=== PATIENT | male | born 1955 | race Caucasian/White ===

== ENCOUNTER 2022-02-15 09:49 | Emergency (ER) | payer OTHER ==
[~2022-02-15] VITALS: Ht 177.8 cm; Wt 83.9 kg
[2022-02-15 10:47] LABS: BASOPHILS ABSOLUTE AUTO 0.05 K/mm3 (0.00-0.23); BASOPHILS PERCENT AUTO 1 % (0-2); EOSINOPHILS PERCENT AUTO 0 % (0-6); Hematocrit 41.2 % (37.0-53.0); Hemoglobin 14.3 g/dL (13.5-17.5); IMMATURE GRAN ABSOLUTE AUTO 0.03 K/mm3 (0.00-0.10); IMMATURE GRAN PERCENT AUTO 0 % (0-1); LYMPHOCYTES ABSOLUTE AUTO 1.24 K/mm3 (0.84-5.20); LYMPHOCYTES PERCENT AUTO 14 % (21-46); MONOCYTES ABSOLUTE AUTO 0.69 K/mm3 (0.16-1.47); MONOCYTES PERCENT AUTO 8 % (4-13); Mean Corpuscular HGB 31.2 pg (26.0-34.0); Mean Corpuscular HGB Conc 34.7 g/dL (31.5-36.5); Mean Corpuscular Volume 90 fL (80-100); Mean Platelet Volume 8.9 fL (9.1-12.4); NEUTROPHILS ABSOLUTE AUTO 6.78 K/mm3 (1.96-9.15); NEUTROPHILS PERCENT AUTO 77 % (41-73); Platelet Count 183 K/mm3 (150-400); RDW Standard Deviation 42.7 fL (35.1-46.3); Red Blood Cell Count 4.59 M/mm3 (4.30-5.90); White Blood Cell Count 8.79 K/mm3 (4.00-11.30)
[2022-02-15 11:07] LABS: Albumin, Blood 3.8 g/dL (3.4-5.0); Albumin/Globulin Ratio 1.2 (0.8-1.8); Bilirubin, Total 0.7 mg/dL (0.1-1.0); Bun/Creatinine Ratio 18.4 (12.0-20.0); Calcium, Blood 8.3 mg/dL (8.5-10.1); Creatinine, Blood 0.71 mg/dL (0.60-1.20); Globulin, Blood 3.1 g/dL (2.2-4.0); Total Protein, Blood 6.9 g/dL (6.4-8.2)
[2022-02-15] MEDS ORDERED: NEURONTIN300 MG PO (11:31)
[2022-02-15] MEDS ORDERED: AMLODIPINE BESYL5 MG PO (11:31)
[2022-02-15] MEDS ORDERED: LISI5 PO (11:31)
[2022-02-15] MEDS ORDERED: ESCI10 PO (11:32)
[2022-02-15 11:47] LABS: Source, Urine Clean Catch
[2022-02-15 12:32] LABS: Appearance, Urine Clear (Clear); Bilirubin, Urine Neg (Neg); Blood, Urine Neg (Neg); Color, Urine Yellow (P-Yellow); Glucose Qualitative, Urine Neg (Neg); Ketones, Urine 3+ (Neg); Leukocyte Esterase, Urine Neg (Neg); Nitrite, Urine Neg (Neg); Protein, Urine 1+ (Neg); Urobilinogen, Urine 1+ (Normal); pH, Urine 6.5 (5.0-8.0)
== END 2022-02-15 14:06 | disposition home or self-care (01) ==
LOC: ER 09:49
PROVIDERS: Emergency Medicine; Physician Assistant
DX: R10.12 Left upper quadrant pain (principal); F10.90 Alcohol use, unspecified, uncomplicated; I10 Essential (primary) hypertension; Z88.5 Allergy status to narcotic agent; Z95.5 Presence of coronary angioplasty implant and graft
CPT/HCPCS: 71045; 74177; 80053; 83690; 84484; 85025; 86140; 93005; 93010; C9113; G0480; J2405; Q9967

== ENCOUNTER 2022-11-22 14:16 | Inpatient (IN) | payer MEDICARE ==
[2022-11-22] VITALS (10 sets, daily range): BP systolic 142–159; BP diastolic 73–114
[~2022-11-22] VITALS: Ht 177.8 cm; Wt 80.0 kg
[~2022-11-22 14:16] MED LIST: AMLODIPINE BESYL5 MG PO; ESCI10 PO; LISI5 PO; NEURONTIN300 MG PO
[2022-11-22 15:01] LABS: PCO2 Arterial < 8 mmHg (35-45); PO2 Arterial 120 mmHg (80-100); pH Blood Arterial 7.13 (7.35-7.45)
[2022-11-22 15:03] LABS: BASOPHILS ABSOLUTE AUTO 0.06 K/mm3 (0.00-0.23); BASOPHILS PERCENT AUTO 1 % (0-2); EOSINOPHILS ABSOLUTE AUTO 0.01 K/mm3 (0.00-0.68); EOSINOPHILS PERCENT AUTO 0 % (0-6); Hematocrit 41.9 % (37.0-53.0); Hemoglobin 14.3 g/dL (13.5-17.5); IMMATURE GRAN PERCENT AUTO 2 % (0-1); LYMPHOCYTES ABSOLUTE AUTO 0.84 K/mm3 (0.84-5.20); LYMPHOCYTES PERCENT AUTO 9 % (21-46); MONOCYTES ABSOLUTE AUTO 1.18 K/mm3 (0.16-1.47); MONOCYTES PERCENT AUTO 12 % (4-13); Mean Corpuscular HGB 35.8 pg (26.0-34.0); Mean Corpuscular HGB Conc 34.1 g/dL (31.5-36.5); Mean Corpuscular Volume 105 fL (80-100); NEUTROPHILS ABSOLUTE AUTO 7.55 K/mm3 (1.96-9.15); NEUTROPHILS PERCENT AUTO 77 % (41-73); NRBC ABSOLUTE 0.09 K/mm3 (0.00-0.02); NRBC Auto 0.9 /100 WBC (0.0-0.2); Platelet Count 169 K/mm3 (150-400); RDW Coefficient Variation 13.2 % (11.7-14.2); RDW Standard Deviation 51.1 fL (35.1-46.3); White Blood Cell Count 9.84 K/mm3 (4.00-11.30)
[2022-11-22 16:00] LABS: Albumin, Blood 3.8 g/dL (3.4-5.0); Albumin/Globulin Ratio 1.1 (0.8-1.8); Bilirubin, Total 4.3 mg/dL (0.1-1.0); Bun/Creatinine Ratio 10.5 (12.0-20.0); Calcium, Blood 9.1 mg/dL (8.5-10.1); Creatinine, Blood 1.72 mg/dL (0.60-1.20); Globulin, Blood 3.6 g/dL (2.2-4.0); Potassium, Blood 3.7 mmol/L (3.5-5.5); Total Protein, Blood 7.4 g/dL (6.4-8.2)
[2022-11-22 16:59] LABS: Ethanol (Alcohol), Blood, Med 5 mg/dL
[2022-11-22 17:20] LABS: Acetaminophen, Random <2.0 ug/mL (10.0-30.0); Salicylate <1.7 mg/dL (2.8-20.0)
[2022-11-22 17:47] LABS: Source, Urine Clean Catch
[2022-11-22 17:55] LABS: Blood, Urine 5+ (Neg); Glucose Qualitative, Urine Neg (Neg); Ketones, Urine 4+ (Neg); Leukocyte Esterase, Urine Neg (Neg); Nitrite, Urine Neg (Neg); Protein, Urine 3+ (Neg); Urobilinogen, Urine 2+ (Normal)
[2022-11-22 18:14] LABS: U Amphetamine Screen Not Detected; U Barbituate Screen Not Detected; U Benzodiazapine Screen Not Detected; U Buprenorphine Screen Not Detected; U Cannabinoids Screen Not Detected; U Cocaine Screen Not Detected; U Methadone Screen Not Detected; U Methamphetamine Screen Not Detected; U Opiates Screen Not Detected; U Oxycodone Screen Not Detected; U Phencyclidine Screen Not Detected; U Propoxyphene Screen Not Detected
[2022-11-22 18:15] LABS: Bilirubin, Urine 1+ (Neg)
[2022-11-22 18:16] LABS: Appearance, Urine Hazy (Clear); Color, Urine Amber (P-Yellow)
[2022-11-22 18:17] LABS: Amorphous Light (0-Heavy); Bacteria Few /hpf; Red Blood Cells, Urine 0-2 /hpf (0-2); Squamous Epithelial Cells Rare /hpf (Few); White Blood Cells, Urine 0-2 /hpf (0-5)
--- NOTE | 2022-11-22 18:31 | NUR ---
Summary. Pt arrived to ICU at approximately 1800. Pt alert responding to verbal stimuli. Report received from MEMBERSHIP ADMINISTRATOR. Bicarb infusing at 100 ml/hr. Pt nauseous, vomited one time into emesis bag. PRN zofran given. Pt on room air, tachypnic and hypertensive. Pt states hx of recent acohol cessasion, states he drank heavily for years before quitting. Pt does not remember losing conciousness and coming to hospital. Dr. Hinton at bedside at 1830 to assess pt. Pt assessed for smoking/ignition sources. No risk identified. Rounded hourly.
[2022-11-22 18:37] LABS: International Normalized Ratio 1.07; Prothrombin Time Results 11.2 Sec (9.7-11.5)
[2022-11-22 18:50] LABS: Base Excess Venous -18.5 mmol/L; Bicarbonate Venous 11.9 mmol/L (24.0-30.0); PCO2 Venous 21.9 mmHg (38-42); pH Blood Venous 7.23 (7.34-7.37)
[2022-11-22 18:56] LABS: Albumin, Blood 3.5 g/dL (3.4-5.0); Albumin/Globulin Ratio 1.2 (0.8-1.8); Bilirubin, Total 5.7 mg/dL (0.1-1.0); Bun/Creatinine Ratio 11.1 (12.0-20.0); Calcium, Blood 8.6 mg/dL (8.5-10.1); Creatinine, Blood 1.62 mg/dL (0.60-1.20); Globulin, Blood 2.9 g/dL (2.2-4.0); Potassium, Blood 2.9 mmol/L (3.5-5.5); Total Protein, Blood 6.4 g/dL (6.4-8.2)
[2022-11-22 21:57] LABS: PCO2 Venous 31 mmHg (38-42); pH Blood Venous 7.36 (7.34-7.37)
[2022-11-22 21:58] LABS: Base Excess Venous -7.9 mmol/L; Bicarbonate Venous 18.6 mmol/L (24.0-30.0)
[2022-11-22 22:51] LABS: Alanine Aminotransfer (ALT/SGP 319 U/L (12-78); Albumin/Globulin Ratio 1.1 (0.8-1.8); Alk Phos 104 U/L (50-136); Anion Gap 24 mmol/L (6-16); Aspartate Aminotrans (AST/SGOT 860 U/L (12-37); Bilirubin, Direct 5.3 mg/dL (0.0-0.3); Bilirubin, Total 6.5 mg/dL (0.1-1.0); Blood Urea Nitrogen 20 mg/dL (8-24); Bun/Creatinine Ratio 12.7 (12.0-20.0); CO2, Blood 16 mmol/L (21-32); Calcium, Blood 7.9 mg/dL (8.5-10.1); Chloride, Blood 93 mmol/L (98-108); Cholesterol 188 mg/dL (50-200); Creatinine, Blood 1.57 mg/dL (0.60-1.20); Globulin, Blood 2.7 g/dL (2.2-4.0); Glomerular Filtration Rate 47 (60-); Glucose, Blood 254 mg/dL (70-99); Potassium, Blood 2.6 mmol/L (3.5-5.5); Sodium, Blood 133 mmol/L (136-145); Total Protein, Blood 5.7 g/dL (6.4-8.2); Triglycerides 416 mg/dL (30-160)
[2022-11-22 23:37] LABS: Test Name ETHYLENE GLYCOL; Test Name ISOPROPANOL
[2022-11-22 23:38] LABS: Test Name METHANOL
[2022-11-23] VITALS (36 sets, daily range): BP systolic 88–156; BP diastolic 56–108
[2022-11-23 02:09] LABS: Bicarbonate Venous 25.8 mmol/L (24.0-30.0); PCO2 Venous 38.6 mmHg (38-42); pH Blood Venous 7.44 (7.34-7.37)
[2022-11-23 02:10] LABS: Base Excess Venous 2 mmol/L
[2022-11-23 02:31] LABS: BASOPHILS ABSOLUTE AUTO 0.01 K/mm3 (0.00-0.23); BASOPHILS PERCENT AUTO 0 % (0-2); EOSINOPHILS PERCENT AUTO 0 % (0-6); Hematocrit 32.6 % (37.0-53.0); Hemoglobin 11.9 g/dL (13.5-17.5); IMMATURE GRAN ABSOLUTE AUTO 0.03 K/mm3 (0.00-0.10); IMMATURE GRAN PERCENT AUTO 1 % (0-1); LYMPHOCYTES ABSOLUTE AUTO 0.14 K/mm3 (0.84-5.20); LYMPHOCYTES PERCENT AUTO 2 % (21-46); MONOCYTES ABSOLUTE AUTO 0.26 K/mm3 (0.16-1.47); MONOCYTES PERCENT AUTO 4 % (4-13); Mean Corpuscular HGB 35.3 pg (26.0-34.0); Mean Corpuscular HGB Conc 36.5 g/dL (31.5-36.5); NEUTROPHILS ABSOLUTE AUTO 6.01 K/mm3 (1.96-9.15); NEUTROPHILS PERCENT AUTO 93 % (41-73); NRBC ABSOLUTE 0.03 K/mm3 (0.00-0.02); NRBC Auto 0.5 /100 WBC (0.0-0.2); Platelet Count 96 K/mm3 (150-400); RDW Coefficient Variation 12.4 % (11.7-14.2); RDW Standard Deviation 43.8 fL (35.1-46.3); Red Blood Cell Count 3.37 M/mm3 (4.30-5.90); White Blood Cell Count 6.45 K/mm3 (4.00-11.30)
[2022-11-23 02:32] LABS: Mean Corpuscular Volume 97 fL (80-100)
[2022-11-23 02:33] LABS: Magnesium, Blood 2.2 mg/dL (1.6-2.4)
[2022-11-23 02:36] LABS: Albumin/Globulin Ratio 1.2 (0.8-1.8); Bilirubin, Total 6.5 mg/dL (0.1-1.0); Bun/Creatinine Ratio 12.6 (12.0-20.0); Calcium, Blood 7.8 mg/dL (8.5-10.1); Creatinine, Blood 1.82 mg/dL (0.60-1.20); Globulin, Blood 2.5 g/dL (2.2-4.0); Potassium, Blood 3.2 mmol/L (3.5-5.5); Total Protein, Blood 5.5 g/dL (6.4-8.2)
--- NOTE | 2022-11-23 05:51 | NUR ---
PATIENT BECOMING INCREASINGLY CONFUSED OVERNIGHT. CIWA PROTOCOL ORDERED AND SCORE INCREASING, HIGH 15. ABLE TO INTERMITTENTLY ANSWER ORIENTATION QUESTIONS, BUT TREMULOUS, AGITATED, NAUSEUS, AND HAVING VISUAL HALLUCINATIONS. TOTAL OF 8 MG OF ATIVAN GIVEN AND 50 MG LIBRIUM. SR/ST AND BP STABLE. ROOM AIR. ZOFRAN AND COMPAZINE GIVEN FOR NAUSEA. INCONTINENT OF STOOL X2. CONDOM CATHETER IN PLACE. POISON CONTROL NOTIFIED OF HIGH ACETONE LEVEL. HOURLY ROUNDING COMPLETED FOR IGNITION SOURCES AND PATIENT EDUCATED ON RISKS.
[2022-11-23 07:46] LABS: Albumin, Blood 2.8 g/dL (3.4-5.0); Albumin/Globulin Ratio 1.1 (0.8-1.8); Bilirubin, Total 5.5 mg/dL (0.1-1.0); Bun/Creatinine Ratio 12.1 (12.0-20.0); Calcium, Blood 7.8 mg/dL (8.5-10.1); Creatinine, Blood 2.06 mg/dL (0.60-1.20); Globulin, Blood 2.5 g/dL (2.2-4.0); Total Protein, Blood 5.3 g/dL (6.4-8.2)
--- NOTE | 2022-11-23 09:08 | NUR ---
CARE OF PT ASSUMED AT 0700. PT SLEEPING, DOES AWAKEN TO LOUD VOICE BUT VERY DROWSY, SLOW TO ANSWER. ORIENTED ONLY TO SELF, SPEECH MUMBLED. WILL HOLD PO UNTIL ABLE TO SWALLOW SAFELY/MORE AWAKE. CONDOM CATH DRY. BLADDER SCAN SHOWS 307. DR BISHOP CALLED AND UPDATED. K+ 60MEQ ORDERED. NS 1L BOLUS ORDERED; LACTIC ACID 2.3. CIWA 16.
--- NOTE | 2022-11-23 09:48 | NUR ---
POISON CONTROL CALLED AND UPDATED ON LABS; ACETONE 20. NO NEW RECOMMENDATIONS, CONTINUE SUPPORTIVE CARE. DR BISHOP AND DR KAY AT BEDSIDE AND GIVEN FULL UPDATE.
[2022-11-23 10:05] LABS: Base Excess Venous 1.1 mmol/L; Bicarbonate Venous 24.9 mmol/L (24.0-30.0); PCO2 Venous 37.2 mmHg (38-42); pH Blood Venous 7.44 (7.34-7.37)
--- NOTE | 2022-11-23 10:27 | NUR ---
APNEA LASTING AROUND 10SEC NOTED W SATS LOW 60%. 3L 02 VIA N/C PLACED ON PT. RT NOTIFIED.
--- NOTE | 2022-11-23 16:12 | NUR ---
PT WOKE UP BRIEFLY TRYING TO CLIMB OUT OF BED. PT CONFUSED, SPEECH MORE UNDERSTANDABLE. PT RE-ORIENTED, ABLE TO RECALL THAT HE WAS AT [facility] IN THE ICU ABOUT 5MIN LATER. PT HAD PULLED CONDOM CATH OFF, URINE CLEANED, CONDOM CATH REPLACED.
[2022-11-23 17:16] LABS: Source, Urine Condom Cath
[2022-11-23 17:21] LABS: Blood, Urine 5+ (Neg); Color, Urine Amber (P-Yellow); Glucose Qualitative, Urine 2+ (Neg); Ketones, Urine 2+ (Neg); Leukocyte Esterase, Urine 1+ (Neg); Nitrite, Urine Pos (Neg); Protein, Urine 3+ (Neg); Specific Gravity, Urine 1.015 (1.003-1.022); Urobilinogen, Urine 2+ (Normal)
[2022-11-23 17:28] LABS: Bilirubin, Urine 2+ (Neg)
[2022-11-23 17:29] LABS: Appearance, Urine Hazy (Clear); White Blood Cells, Urine 25-50 /hpf (0-5)
[2022-11-23 17:30] LABS: Bacteria Many /hpf; Squamous Epithelial Cells Many /hpf (Few)
[2022-11-23 17:31] LABS: Yeast/Fungi Urine Rare /hpf
--- NOTE | 2022-11-23 17:33 | NUR ---
PT DID NOT REQUIRE ATIVAN THIS SHIFT. PT SLEPT MOST OF SHIFT, WAKING UP BRIEFLY EVERY HOUR. PT CONFUSED, BUT ABLE TO RECALL SOME INFORMATION TOWARDS END OF SHIFT. CIWA BETWEEN 11-15 FOR CONFUSION, HALLUICNATIONS, AND TREMOR. PT RECEIVED 1L NS BOLUS TODAY W MAIN FLUIDS AT 125CC/HR. 60MEQ K+ REPLACED. POISON CONTROL UPDATED TODAY W RECOMMENDATIONS FOR SUPPORTIVE CARE. LOW URINE OUTPUT, 200CC TO CONDOM CATH, AND ONE SMALL INCONTINENT VOID. BLADDER SCAN SHOWED JUST UNDER 400. PT REMAINS NPO D/T SOMNOLENCE. PT TOO CONFUSED TO UNDERSTAND IGNITION RISK EDUCATION, NO FAMILY/FRIENDS IN TO SEE PT TODAY. HOURLY ROUNDING WAS COMPLETED FOR IGNITION SOURCES.
[2022-11-23 17:35] LABS: Hematocrit 30.3 % (37.0-53.0); Hemoglobin 10.7 g/dL (13.5-17.5)
[2022-11-23 18:02] LABS: Albumin, Blood 2.6 g/dL (3.4-5.0); Albumin/Globulin Ratio 1.2 (0.8-1.8); Bilirubin, Total 4.2 mg/dL (0.1-1.0); Bun/Creatinine Ratio 13.5 (12.0-20.0); Calcium, Blood 7.4 mg/dL (8.5-10.1); Creatinine, Blood 2.45 mg/dL (0.60-1.20); Globulin, Blood 2.2 g/dL (2.2-4.0); Potassium, Blood 3.6 mmol/L (3.5-5.5); Total Protein, Blood 4.8 g/dL (6.4-8.2)
[2022-11-23 19:32] LABS: Bicarbonate Venous 22.2 mmol/L (24.0-30.0); PCO2 Venous 34.5 mmHg (38-42); pH Blood Venous 7.41 (7.34-7.37)
[2022-11-23 19:33] LABS: Base Excess Venous -2.7 mmol/L
[2022-11-24] VITALS (24 sets, daily range): BP systolic 115–167; BP diastolic 64–121
[2022-11-24 03:43] LABS: BASOPHILS ABSOLUTE AUTO 0.01 K/mm3 (0.00-0.23); BASOPHILS PERCENT AUTO 0 % (0-2); EOSINOPHILS ABSOLUTE AUTO 0.01 K/mm3 (0.00-0.68); EOSINOPHILS PERCENT AUTO 0 % (0-6); Hematocrit 29.8 % (37.0-53.0); Hemoglobin 10.3 g/dL (13.5-17.5); IMMATURE GRAN PERCENT AUTO 2 % (0-1); LYMPHOCYTES ABSOLUTE AUTO 0.41 K/mm3 (0.84-5.20); LYMPHOCYTES PERCENT AUTO 7 % (21-46); MONOCYTES ABSOLUTE AUTO 0.33 K/mm3 (0.16-1.47); MONOCYTES PERCENT AUTO 6 % (4-13); Mean Corpuscular HGB 34.7 pg (26.0-34.0); Mean Corpuscular HGB Conc 34.6 g/dL (31.5-36.5); Mean Corpuscular Volume 100 fL (80-100); Mean Platelet Volume 10.3 fL (9.1-12.4); NEUTROPHILS ABSOLUTE AUTO 4.65 K/mm3 (1.96-9.15); NEUTROPHILS PERCENT AUTO 84 % (41-73); NRBC ABSOLUTE 0.02 K/mm3 (0.00-0.02); NRBC Auto 0.4 /100 WBC (0.0-0.2); Platelet Count 68 K/mm3 (150-400); RDW Coefficient Variation 13.2 % (11.7-14.2); RDW Standard Deviation 49.1 fL (35.1-46.3); RETICULOCYTE COUNT PERCENT 1.76 % (0.50-2.50); Red Blood Cell Count 2.97 M/mm3 (4.30-5.90); White Blood Cell Count 5.51 K/mm3 (4.00-11.30)
[2022-11-24 04:19] LABS: Albumin, Blood 2.6 g/dL (3.4-5.0); Albumin/Globulin Ratio 1.2 (0.8-1.8); Bilirubin, Total 3.7 mg/dL (0.1-1.0); Bun/Creatinine Ratio 14.4 (12.0-20.0); Calcium, Blood 7.6 mg/dL (8.5-10.1); Creatinine, Blood 2.63 mg/dL (0.60-1.20); Globulin, Blood 2.2 g/dL (2.2-4.0); Potassium, Blood 3.5 mmol/L (3.5-5.5); Total Protein, Blood 4.8 g/dL (6.4-8.2)
--- NOTE | 2022-11-24 05:57 | NUR ---
SHIFT SUMMARY NO ATIVAN GIVEN THIS SHIFT. PT ALERT&ORIENTEDX4. CAN ANSWER QUESTIONS APPROPRIATLY, ALTHOUGH AT OTHER TIMES PT IS TALKING TO HIMSELF AND REPORTS SEEING CATS ON THE CEILING, WITH SOME OTHER HALLUCINATIONS. RN ABLE TO REORIENT PT. CONTINUES GETTING NS AT 150MLS/HR. 1 BM OVERNIGHT. CONDOM CATH IN PLACE DRAINING SERG URINE.
--- NOTE | 2022-11-24 07:19 | NUR ---
CARE OF PT ASSUMED AT 0700. PT RESTLESS IN BED, REMOVING GOWN AND LINES. PT IS RE-DIRECTABLE, BUT CONFUSED AND FORGETFUL. PT IS HAVING ACTIVE HALLUCINATIONS. PT C/O NAUSEA. CIWA 18 ALTHOUGH PT MOSTLY CALM, FALLING ASLEEP INBETWEEN QUESTIONS. CIWA 18 FOR CONFUSION, TREMORS, NAUSEA, AND HALLUCINATIONS. NS AT 150CC/HR. ZOFRAN TO BE GIVEN IN HOPES NAUSEA IMPROVES TO ALLOW PT TO EAT SOME BREAKFAST.
--- NOTE | 2022-11-24 08:22 | NUR ---
PT TRYING TO CRAWL OVER RAIL OF BED TO "ADJUST THE RADIO DIALS". CIWA 18 AND INCREASING, ATIVAN 1MG GIVEN.
--- NOTE | 2022-11-24 09:38 | NUR ---
POSION CONTROL CALLED, UPDATE GIVEN. POISON CONTROL CALLED BACK WITH NEW RECOMMENDATIONS FROM MORTUARY OPERATIONS MANAGER DR WARD. RECOMMENDATIONS MADE TO START ACETYLCYTEINE, CHECK INR AND CK. LIVER INJURY PROTOCOL FAXED TO US. DR FOSS CONTACTED VIA PHONE AND GIVEN RECOMMENDATIONS. AWAITING NEW ORDERS.
--- NOTE | 2022-11-24 10:24 | NUR ---
DR KAY AT BEDSIDE, FULL UPDATE GIVEN, LIVER INJURY PROTOCOL FOR IV NAC REVIEWED. AWAITING ORDERS. PT PULLED CONDOM CATH OFF, WILL REPLACE. PT GIVEN FULL CHG BATH W LINEN CHANGE.
[2022-11-24 11:59] LABS: International Normalized Ratio 1.52; Prothrombin Time Results 15.6 Sec (9.7-11.5)
[2022-11-24 12:27] LABS: Acetaminophen, Random 2.3 ug/mL (10.0-30.0)
--- NOTE | 2022-11-24 16:06 | NUR ---
PT REQUESTED SOMETHING TO EAT, AFTER SMALL AMT OF SOUP W CRACKERS PT C/O NAUSEA, COMPAZINE 5MG GIVEN W GOOD RELIEF. PT SLEEPING NOW W BIPAP 02/02, TOLERATING WELL.
--- NOTE | 2022-11-24 17:40 | NUR ---
CIWA BETWEEN 11-18 THIS SHIFT, ALTHOUGH PT MOSTLY CALM AND REDIRECTABLE T/O SHIFT. PT ONLY REQUIRED 2MG TOTAL OF ATIVAN. TOWARDS EVENING PT WAS MORE AWAKE/ALERT, SPEECH CLEARING. PT ABLE TO HOLD MORE APPROPRIATE CONVERSATION, ALTHOUGH REMAINS CONFUSED W ACTIVE HALLUCINATIONS. PT ABLE TO DRINK SUPPLEMENTAL DRINK FOR BREAKFAST. PT REQUESTED SOMETHING TO EAT LATER IN SHIFT BUT THEN BECAME NAUSEATED, PT TREATED W COMPAZINE. PT ALSO COMPLAINED OF INDIGESTION THIS SHIFT, MAALOX GIVEN W GOOD RELIEF OF SYMPTOMS. PT PLACED ON BIPAP / PER RT PROTOCOL WHILE SLEEPING FOR SLEEP APNEA. PT TOLERATED FOR THE FIRST HOUR THEN REMOVED BIPAP. SATS >90%. POSION CONTROL CALLED W RECOMMENDATIONS FOR NAC, PT RECIEVING NAC PROTOCOL NOW. IGNITION RISK DISCUSSED W PT, PT IS CONFUSED, NO FAMILY/FRIENDS IN TODAY. HOURLY ROUNDLY COMPLETED ON IGNITION RISK/SOURCE.
--- NOTE | 2022-11-24 19:00 | NUR ---
ASSUMPTION OF CARE NOTE UPON INITIAL ASSESSMENT PT APPEARS RESTING IN BED. A&OX4 WHEN ASKED QUESTIONS, BUT SPEECH IS SLURRED AND MUMBLED. WHEN NOT DIRECTLY SPEAKING WITH PT HE SOMETIMES WILL BEGIN TALKING ABOUT THINGS THAT DON'T SENSE AND SEEMS TO HAVE SOME VISUAL HALLUCINATIONS. HOWEVER HE IS VERY REDIRECTABLE. NAC RUNNING AT MAINTAINANCE RATE. LR RUNNING AT 150 MLS/HR. MUCH MORE LETHARGIC THIS SHIFT AND DOES NOT SEEM AGITATED. CONDOM CATH IN PLACE DRAINING SERG URINE WITH GOOD OUTPUT
--- NOTE | 2022-11-24 22:00 | NUR ---
UPDATE SPOKE WITH POISON CONTROL REGARDING PT STATUS. PER THEIR RECOMMENDATION THEY WOULD LIKE AST, ALT AND INR TO BE DRAWN Q 12 HOURS. NAC ALSO NEEDS TO CONTINUE TO RUN AT CURRENT MAINTAINANCE RATE 64.87 MLS/HRS UNTIL LIVER ENZYMES PEAK AND DROP, SPECIFICALLY AST TO BELOW 1000 AND INR UNDER 2. THEY ALSO RECOMMEND REACHING OUT TO A LIVER TRANSPLANT SERVICE TO CONSULT WITH A SPECIALIST EVEN THOUGH PT MAY NOT QUALIFY FOR A LIVER. ALL THIS INFORMATION WAS RELAYED TO DR. CHAIREZ WHO STATED SHE WOULD PUT ORDERS IN FOR LABS AND CONTINUOUS NAC.
[2022-11-24 23:59] LABS: International Normalized Ratio 1.33; Prothrombin Time Results 13.7 Sec (9.7-11.5)
[2022-11-25] VITALS (9 sets, daily range): BP systolic 115–160; BP diastolic 71–98
[2022-11-25 00:14] LABS: Alanine Aminotransfer (ALT/SGP 1536 U/L (12-78); Aspartate Aminotrans (AST/SGOT 2665 U/L (12-37)
[2022-11-25 03:48] LABS: BASOPHILS ABSOLUTE AUTO 0.01 K/mm3 (0.00-0.23); BASOPHILS PERCENT AUTO 0 % (0-2); EOSINOPHILS ABSOLUTE AUTO 0.04 K/mm3 (0.00-0.68); EOSINOPHILS PERCENT AUTO 1 % (0-6); Hematocrit 28.6 % (37.0-53.0); Hemoglobin 10.2 g/dL (13.5-17.5); IMMATURE GRAN ABSOLUTE AUTO 0.07 K/mm3 (0.00-0.10); IMMATURE GRAN PERCENT AUTO 2 % (0-1); LYMPHOCYTES ABSOLUTE AUTO 0.56 K/mm3 (0.84-5.20); LYMPHOCYTES PERCENT AUTO 13 % (21-46); MONOCYTES ABSOLUTE AUTO 0.44 K/mm3 (0.16-1.47); MONOCYTES PERCENT AUTO 10 % (4-13); Mean Corpuscular HGB 34.8 pg (26.0-34.0); Mean Corpuscular HGB Conc 35.7 g/dL (31.5-36.5); Mean Corpuscular Volume 98 fL (80-100); Mean Platelet Volume 11.3 fL (9.1-12.4); NEUTROPHILS ABSOLUTE AUTO 3.32 K/mm3 (1.96-9.15); NEUTROPHILS PERCENT AUTO 75 % (41-73); Platelet Count 63 K/mm3 (150-400); RDW Coefficient Variation 12.9 % (11.7-14.2); RDW Standard Deviation 46.1 fL (35.1-46.3); Red Blood Cell Count 2.93 M/mm3 (4.30-5.90); White Blood Cell Count 4.44 K/mm3 (4.00-11.30)
[2022-11-25 04:17] LABS: Bun/Creatinine Ratio 15.8 (12.0-20.0); Calcium, Blood 8.1 mg/dL (8.5-10.1); Creatinine, Blood 2.65 mg/dL (0.60-1.20); Potassium, Blood 2.8 mmol/L (3.5-5.5)
--- NOTE | 2022-11-25 05:43 | NUR ---
SHIFT SUMMARY PT SLEPT FOR MAJORITY OF SHIFT, AWOKE AROUND 4 AM. A&OX4 WITH SOME LABILE CONFUSION, HOWEVER SLURRING AND MUMBLING HAVE IMPROVED IMMENSLY THROUGHOUT THIS SHIFT. SOMETIMES DOES PULL AT LINES BUT IS EASILY REDIRECTABLE. CIWA SCORE OF 8. NO PRN MEDICATIONS GIVEN. POTASSIUM LOW THIS AM. REPLACEMENT CURRENTLY RUNNING. CONDOM CATH SECURED AND DRAINING
--- NOTE | 2022-11-25 07:20 | NUR ---
Assumed care at 0700. Bedside report received. Pt resting in bed, A&O. Speech is slow and slightly slurred. Acetylcysteine infusing at 64.8 ml/hr, LR infusing at 150 ml/hr. Condom cath in place. VS stable, no acute needs noted. Will continue to monitor.
[2022-11-25 09:08] LABS: HBSAG SCREEN Negative (Negative); HCV AB Non Reactive (Non Reactive); HEP A AB, IGM Negative (Negative); HEP B CORE AB, IGM Negative (Negative)
[2022-11-25 10:48] LABS: Result SEE SEPERATE REPORT
[2022-11-25 10:49] LABS: Result SEE SEPERATE REPORT
[2022-11-25 11:25] LABS: International Normalized Ratio 1.28; Prothrombin Time Results 13.3 Sec (9.7-11.5)
[2022-11-25 11:40] LABS: Albumin, Blood 2.3 g/dL (3.4-5.0); Bilirubin, Direct 1.8 mg/dL (0.0-0.3); Bilirubin, Indirect 1.2 mg/dL (0.1-0.7); Globulin, Blood 2.2 g/dL (2.2-4.0); Total Protein, Blood 4.5 g/dL (6.4-8.2)
--- NOTE | 2022-11-25 18:49 | NUR ---
Shift summary. Pt rested in bed throughout shift. Mentation improved today, pt A&O x4 with occasional periods of confusion/delerium. No acute events this shift. Poison control recommendation is to continue NAC protocol until 2300 labs are drawn and resulted. Acetylcysteine infusing at 64.8 ml/hr. LR infusing at 150 ml/hr. See chart for further details. Hourly rounding for ignition risk done, nothing noted. Will report off to nightshift RN.
--- NOTE | 2022-11-25 19:00 | NUR ---
ASSUMPTION OF CARE PT SLEEPING AT BEGINNING OF SHIFT. UPON ASSESSMENT MENTATION IS MUCH IMPROVED FROM PREVIOUS SHIFTS. A&OX4, ABLE TO HOLD CONVERSATION, DOES NOT REPORT ANY VISUAL OR AUDITORY HALLUCINATIONS. STILL FORGETFUL AT TIMES ESPECIALLY WHEN REMEMBERING THAT A CONDOM CATH IS IN PLACE. NO REPORTS OF PAIN. VSS.
[2022-11-25 23:26] LABS: Albumin, Blood 1.9 g/dL (3.4-5.0); Bilirubin, Direct 1.2 mg/dL (0.0-0.3); Bilirubin, Indirect 0.6 mg/dL (0.1-0.7); Bilirubin, Total 1.8 mg/dL (0.1-1.0); International Normalized Ratio 1.27; Prothrombin Time Results 13.2 Sec (9.7-11.5); Total Protein, Blood 3.9 g/dL (6.4-8.2)
[2022-11-26 01:43] VITALS: BP 151/90
--- NOTE | 2022-11-26 05:54 | NUR ---
SHIFT SUMMERY. PT ALERT SND ORIENTED 2-3 WITH CONFUSION. PT CSME TO THE FLOOR BY ICU BED SND WAS TRANSFRED BY SLING SND 4 PERSONS TO BED. PTS CONDOME CATH CHANGED IT WAS NEARLY OFF. PT HAD HIS GLASSES AND LENSE WAS MISSING CALLED ICU AND WAS TOLD IT HAD BEEN MISSING WHILE PT WAS IN ICU ALSO. PT STSTED HE WAS HUNGERY AND WAS GIVEN A SANDWITCH. PT APPEAERED TO BE RESTING BUT PT A LITTLE LS=ATER SET OFF BED ALARM PT HAD LEGS HANGING OUT OF BED WITH HEAD OVER BED EDGE TOWORDS FLOOR TOLD PT HE COULD NOT SIT LIKE THAT HE WOULD FALL PT DID NOT THINK SO. PT STATED HE NEEDED TO HAVE A BM PT PLACED ON BED TOMPKINS AND HAD A BM THEN PULLED OUT TOMPKINS HIMSELF PT CLEANED AND PAD CHANGED. LABS DRAWN FROM POWER GLIDE. BED ALARM PUT BACK ON, CALL LIGHT IN REACH. DID FIRE SAFTY TEACHING PT DENIED HAVING ANYTHING LIKE A TYPEWRITER ASSEMBLER OR MATCHES. PT STATED HE DID NOT SMOKE. PT VU.
[2022-11-26 05:56] LABS: BASOPHILS ABSOLUTE AUTO 0.02 K/mm3 (0.00-0.23); BASOPHILS PERCENT AUTO 0 % (0-2); EOSINOPHILS ABSOLUTE AUTO 0.04 K/mm3 (0.00-0.68); EOSINOPHILS PERCENT AUTO 1 % (0-6); Hematocrit 26.4 % (37.0-53.0); Hemoglobin 9.8 g/dL (13.5-17.5); IMMATURE GRAN PERCENT AUTO 2 % (0-1); LYMPHOCYTES ABSOLUTE AUTO 0.52 K/mm3 (0.84-5.20); LYMPHOCYTES PERCENT AUTO 12 % (21-46); MONOCYTES ABSOLUTE AUTO 0.69 K/mm3 (0.16-1.47); MONOCYTES PERCENT AUTO 15 % (4-13); Mean Corpuscular HGB 35.3 pg (26.0-34.0); Mean Corpuscular HGB Conc 37.1 g/dL (31.5-36.5); Mean Corpuscular Volume 95 fL (80-100); NEUTROPHILS ABSOLUTE AUTO 3.13 K/mm3 (1.96-9.15); NEUTROPHILS PERCENT AUTO 70 % (41-73); Platelet Count 76 K/mm3 (150-400); RDW Coefficient Variation 12.7 % (11.7-14.2); RDW Standard Deviation 44.7 fL (35.1-46.3); Red Blood Cell Count 2.78 M/mm3 (4.30-5.90)
[2022-11-26 06:13] LABS: Albumin, Blood 2.4 g/dL (3.4-5.0); Albumin/Globulin Ratio 1.1 (0.8-1.8); Bilirubin, Total 2.2 mg/dL (0.1-1.0); Calcium, Blood 7.2 mg/dL (8.5-10.1); Creatinine, Blood 2.31 mg/dL (0.60-1.20); Globulin, Blood 2.2 g/dL (2.2-4.0); Potassium, Blood 3.5 mmol/L (3.5-5.5); Total Protein, Blood 4.6 g/dL (6.4-8.2)
[2022-11-26 07:28] VITALS: BP 150/75
--- NOTE | 2022-11-26 08:00 | NUR ---
pt laying in bed awake, he is cooperative with care, follows commands but is forgetful and impulsive, bed alarm is acitivated, lung are clear dim in bases, resp even and unlabored, no cough noted, r/a, is on continuous ox, hrr, no edema noted, ppp+2, cap refill <3sec, vs stable, has piv to rfa, clear and patent, and power glide to talha site is clear and patent, btx4, abd flat soft nontender, briefs in place, and condom cath in place, skin has some bruising maew, very weak, harvey call light in reach.
[2022-11-26 15:01] VITALS: BP 162/73
[2022-11-26 16:30] LABS: International Normalized Ratio 1.09; Prothrombin Time Results 11.4 Sec (9.7-11.5)
--- NOTE | 2022-11-26 18:36 | NUR ---
pt has been a bit confused off and on today, he was found putting a butter knife in the blade balancer portion of his cell phone trying to get it to work, he did know it was fully charged, was able to assist him to properly turn it on so he could use it, he did become agitated one time today when he first woke up and attempted to climb out of bed, he was a bit difficult to redirect, then states im sorry I forgot I can't get up, medicated once for nausea, states tonight his stomach hurts up in his esophagus, no further changes this shift. call light in reach.
--- NOTE | 2022-11-26 18:44 | NUR ---
Recieved order for maalox for stomach burning.
[2022-11-26 20:06] VITALS: BP 155/66
[2022-11-27 04:08] VITALS: BP 146/89
[2022-11-27 05:00] LABS: BASOPHILS ABSOLUTE AUTO 0.03 K/mm3 (0.00-0.23); BASOPHILS PERCENT AUTO 1 % (0-2); EOSINOPHILS ABSOLUTE AUTO 0.05 K/mm3 (0.00-0.68); EOSINOPHILS PERCENT AUTO 1 % (0-6); Hematocrit 24.2 % (37.0-53.0); Hemoglobin 8.7 g/dL (13.5-17.5); IMMATURE GRAN ABSOLUTE AUTO 0.13 K/mm3 (0.00-0.10); IMMATURE GRAN PERCENT AUTO 3 % (0-1); LYMPHOCYTES ABSOLUTE AUTO 0.63 K/mm3 (0.84-5.20); LYMPHOCYTES PERCENT AUTO 15 % (21-46); MONOCYTES ABSOLUTE AUTO 0.92 K/mm3 (0.16-1.47); MONOCYTES PERCENT AUTO 22 % (4-13); Mean Corpuscular HGB 35.1 pg (26.0-34.0); Mean Corpuscular Volume 98 fL (80-100); Mean Platelet Volume 10.9 fL (9.1-12.4); NEUTROPHILS ABSOLUTE AUTO 2.37 K/mm3 (1.96-9.15); NEUTROPHILS PERCENT AUTO 57 % (41-73); Platelet Count 92 K/mm3 (150-400); RDW Coefficient Variation 13.1 % (11.7-14.2); RDW Standard Deviation 46.1 fL (35.1-46.3); Red Blood Cell Count 2.48 M/mm3 (4.30-5.90); White Blood Cell Count 4.13 K/mm3 (4.00-11.30)
--- NOTE | 2022-11-27 05:22 | NUR ---
STAVE AND BOLT EQUALIZER SUMMARY NO ACUTE CHANGES OVERNIGHT. A&OX4 WITH INTERMITTENT CONFUSION. PATIENT EFFECTIVELY COMMUNICATES NEEDS. VSS. RR EVEN AND UNLABORED ON RA. LR INFUSING @ 150ML/HR THROUGH LUE POWERGLIDE. PATIENT IS ON BEDREST WITH THE BED ALARM ON FOR SAFETY. SEVERAL REPORTS OF NAUSEA, WHICH WAS MEDICATED PER EMAR. PATIENT IS VOIDING WELL IN URINAL. BED LOW AND LOCKED. CALL LIGHT WITHIN REACH. THIS RN WILL CONTINUE TO MONITOR.
[2022-11-27 05:25] LABS: Albumin, Blood 2.3 g/dL (3.4-5.0); Albumin/Globulin Ratio 1.1 (0.8-1.8); Bilirubin, Total 1.4 mg/dL (0.1-1.0); Bun/Creatinine Ratio 14.2 (12.0-20.0); Calcium, Blood 8.1 mg/dL (8.5-10.1); Creatinine, Blood 2.12 mg/dL (0.60-1.20); Globulin, Blood 2.1 g/dL (2.2-4.0); Potassium, Blood 2.6 mmol/L (3.5-5.5); Total Protein, Blood 4.4 g/dL (6.4-8.2)
[2022-11-27 06:34] LABS: Percent Saturation 63.4 % (20.0-50.0)
[2022-11-27 08:18] VITALS: BP 150/81
[2022-11-27 15:05] VITALS: BP 133/77
--- NOTE | 2022-11-27 16:49 | NUR ---
SHIFT SUMMARY PT UP IN RECLINER AND BACK IN BED SEVERAL TIMES TODAY. REQUESTING TREATMENT WITH ANY ISSUE THAT COMES UP. HAD HICCUPS WHICH HE WANTED SOMETHING TO TREAT BUT HICCUPS SELF RESOLVED. COUGHING FOR A SHORT PERIOD OF TIME AND REQUESTING COUGH DROPS. LOW GRADE ELEVATED TEMPERATURE. ROOM AVERAGE TEMP. WILL OFFER AND INSTRUCT ON INCENTIVE SPIROMETER AND MONITER TEMP. FORGETFUL AT TIMES AND DESPITE ANSWERING ORIENTATION QUESTIONS STATES HE NEEDS TO GO TO [place] AND HE WILL WAIT IN THE CAR AND HAVE SOMEONE ELSE OBTAIN NEEDED ITEMS FROM STORE. REQUIRED REMINDING HE DOESN'T LEAVE THE HOSPITAL TO GO TO THE STORE. NOT APPARENT RESP DISTRESS TODAY. SATS ON ROOM AIR IN MID TO HIGH 90'S.
[2022-11-27 19:40] VITALS: BP 125/62
[2022-11-28 03:03] VITALS: BP 139/59
--- NOTE | 2022-11-28 04:01 | NUR ---
POINTER HELPER SUMMARY NO ACUTE EVENTS OVERNIGHT. A&OX4 WITH EPISODES OF CONFUSION; LESS EPISODES TONIGHT COMPARED TO THE PREVIOUS NIGHT. VSS. RR EVEN AND UNLABORED ON RA. PATIENT HAS BEEN A 1-PERSON ASSIST TO THE BEDSIDE CHAIR THIS SHIFT. REPORTS OF NAUSEA AND REFLUX MEDICATED PER EMAR. BED LOW AND LOCKED. BED ALARM/CHAIR ALARM ON FOR SAFETY. CALL LIGHT WITHIN REACH. THIS RN WILL CONTINUE TO MONITOR.
[2022-11-28 04:54] LABS: BASOPHILS ABSOLUTE AUTO 0.02 K/mm3 (0.00-0.23); BASOPHILS PERCENT AUTO 0 % (0-2); EOSINOPHILS ABSOLUTE AUTO 0.05 K/mm3 (0.00-0.68); EOSINOPHILS PERCENT AUTO 1 % (0-6); Hematocrit 25.6 % (37.0-53.0); Hemoglobin 9.2 g/dL (13.5-17.5); IMMATURE GRAN ABSOLUTE AUTO 0.14 K/mm3 (0.00-0.10); IMMATURE GRAN PERCENT AUTO 3 % (0-1); LYMPHOCYTES ABSOLUTE AUTO 0.68 K/mm3 (0.84-5.20); LYMPHOCYTES PERCENT AUTO 15 % (21-46); MONOCYTES ABSOLUTE AUTO 1.29 K/mm3 (0.16-1.47); MONOCYTES PERCENT AUTO 28 % (4-13); Mean Corpuscular HGB 35.8 pg (26.0-34.0); Mean Corpuscular HGB Conc 35.9 g/dL (31.5-36.5); Mean Corpuscular Volume 100 fL (80-100); Mean Platelet Volume 11.1 fL (9.1-12.4); NEUTROPHILS PERCENT AUTO 53 % (41-73); Platelet Count 133 K/mm3 (150-400); RDW Coefficient Variation 13.7 % (11.7-14.2); RDW Standard Deviation 49.3 fL (35.1-46.3); Red Blood Cell Count 2.57 M/mm3 (4.30-5.90); White Blood Cell Count 4.68 K/mm3 (4.00-11.30)
[2022-11-28 05:07] LABS: Albumin, Blood 2.6 g/dL (3.4-5.0); Bilirubin, Total 1.3 mg/dL (0.1-1.0); Bun/Creatinine Ratio 14.1 (12.0-20.0); Calcium, Blood 7.8 mg/dL (8.5-10.1); Creatinine, Blood 1.91 mg/dL (0.60-1.20); Globulin, Blood 2.5 g/dL (2.2-4.0); Potassium, Blood 3.4 mmol/L (3.5-5.5); Total Protein, Blood 5.1 g/dL (6.4-8.2)
[2022-11-28 07:14] VITALS: BP 146/91
[2022-11-28 15:07] VITALS: BP 138/85
--- NOTE | 2022-11-28 17:53 | NUR ---
SHIFT SUMMARY PATIENT IS ALERT AND ORIENTED X3 WITH OCCASIONAL CONFUSION. PATIENT HAS BEEN MORE ALERT AND ORIENTED TODAY THAN PREVIOUS SHIFTS PER REPORT. PATIENT WORKED WITH PT AND OT WITH GOOD SUCCESS. PATIENT HAS HAD NO COMPLAINTS OF PAIN, SOB OR VOMITTING. PATIENT HAS HAD NO ACUTE EVENTS THIS SHIFT. VITAL SIGNS REVIEWED. PATIENT HAS HAD HEART BURN AND MEDICATED PER EMAR.
[2022-11-28 19:55] VITALS: BP 138/93
--- NOTE | 2022-11-29 04:13 | NUR ---
PATIENT ALERT, DENIES PAIN NOR DISCOMFORT. DENIES SOB NOR DIFFICULTY BREATHING, ON CONTINIOUS PULSE OX MONITORING, MID TO UPPER 90s ON RA. BED/CHAIR ALARM ON FOR PATIENT SAFETY. REQUIRES 1 ASSIST WITH FWW AND GAIT BELT FOR TRANSFERS. NO ACUTE CHANGES OVERNIGHT. BED IN LOW POSITION, CALL LIGHT WITHIN REACH.
[2022-11-29 06:07] LABS: Albumin, Blood 2.7 g/dL (3.4-5.0); Albumin/Globulin Ratio 1.1 (0.8-1.8); Bilirubin, Total 1.2 mg/dL (0.1-1.0); Calcium, Blood 8.3 mg/dL (8.5-10.1); Creatinine, Blood 1.91 mg/dL (0.60-1.20); Globulin, Blood 2.5 g/dL (2.2-4.0); Potassium, Blood 3.4 mmol/L (3.5-5.5); Total Protein, Blood 5.2 g/dL (6.4-8.2)
[2022-11-29 07:34] VITALS: BP 157/87
[2022-11-29] MEDS ORDERED: ALUM-MAG HYDRO360 M1 PO (10:50)
[2022-11-29] MEDS ORDERED: OMEP20ER PO (10:51)
[2022-11-29] MEDS ORDERED: POTCHL20ER PO (10:52)
[2022-11-29] MEDS ORDERED: B-1100 M1 PO (10:53)
[2022-11-29 12:09] LABS: Influenza A, PCR NEGATIVE (NEGATIVE); Influenza B, PCR NEGATIVE (NEGATIVE); Resp Syncytial Virus, PCR NEGATIVE (NEGATIVE); SARS-Cov-2 (COVID-19) PCR, MMC NEGATIVE (NEGATIVE)
--- NOTE | 2022-11-29 13:24 | NUR ---
SHIFT/DISCHARGE SUMMERY: PATIENT A&OX4. ANSWER TO QUESTIONS APPROPRIATELY, CALM, PLEASANT AND COOPERATIVE c CARE. PATIENT DENIES CP/PRESSURE, SOB, AND GENERALIZED PAIN. PATIENT REPORTS NAUSEA BUT DENIES VOMITING. MEDICATED X1 c IV ZOFRAN c GREAT EFFECT. PATIENT UP c 1 ASSIST, FWW AND GAITBELT. PATIENT CONTINENT OF BOWELS AND BLADDER AND USES URINAL. PATIENT RECEIVED SCHEDULED MEDS PER EMAR. VITAL SIGNS REVIEWED. POWERGLIDE TO IZABELLA MCKEON'Marck. PATIENT EDUCATED ON NON SMOKING POLICY, RISK OF INJURY AND IGNITION SOURCES WHEN O2 IN USE. PATIENT DENIES SMOKING AND VERBALIZED UNDERSTANDING. PATIENT DISCHARGE TO [facility]. DISCHARGE PACKET WAS FAXED TO [facility] BY PATIENT ACCOUNTS CLERK. REPORT GIVEN TO MASON MCKINNON AT AROUND 1214. ALL PATIENT PERSONAL BELONGINGS WERE SENT WITH THE PATIENT. PATIENT LEFT THE ROOM AT AROUND 1230 AND WAS TRANSPORTED VIA WHEELCHAIR BY [facility].
== END 2022-11-29 12:48 | disposition home or self-care (01) | DRG 917 ==
LOC: ER 14:16 → MEDS 17:42 → ICUE 17:42 → MEDS 11-26 01:31 → ENPENDDIS 11-29 09:39 → MEDS 11-29 12:48
PROVIDERS: Family Medicine; Student in an Organized Health Care Education/Training Program; ADMIT Student in an Organized Health Care Education/Training Program
PROC: 4A033R1 Measurement of Arterial Saturation, Peripheral, Percutaneous Approach (ICD-10-PCS; principal; 2022-11-22)
PROC: HZ2ZZZZ Detoxification Services for Substance Abuse Treatment (ICD-10-PCS; 2022-11-28)
DX: T51.2X1A Toxic effect of 2-Propanol, accidental (unintentional), initial encounter (principal); G92.8 Other toxic encephalopathy; N17.9 Acute kidney failure, unspecified; E87.0 Hyperosmolality and hypernatremia; E87.1 Hypo-osmolality and hyponatremia; E87.20 Acidosis, unspecified; K86.2 Cyst of pancreas; M62.82 Rhabdomyolysis; E72.4 Disorders of ornithine metabolism; F10.239 Alcohol dependence with withdrawal, unspecified; E46 Unspecified protein-calorie malnutrition; K70.10 Alcoholic hepatitis without ascites; D53.9 Nutritional anemia, unspecified; K76.82 Hepatic encephalopathy; E80.6 Other disorders of bilirubin metabolism; I25.10 Atherosclerotic heart disease of native coronary artery without angina pectoris; E87.6 Hypokalemia; B95.8 Unspecified staphylococcus as the cause of diseases classified elsewhere; R54 Age-related physical debility; Y90.0 Blood alcohol level of less than 20 mg/100 ml; D69.6 Thrombocytopenia, unspecified; R74.01 Elevation of levels of liver transaminase levels; Z20.822 Contact with and (suspected) exposure to COVID-19; I10 Essential (primary) hypertension; Z95.5 Presence of coronary angioplasty implant and graft; Z71.41 Alcohol abuse counseling and surveillance of alcoholic; Z88.5 Allergy status to narcotic agent; Z79.811 Long term (current) use of aromatase inhibitors; Z79.899 Other long term (current) drug therapy; Z87.891 Personal history of nicotine dependence; Z68.25 Body mass index [BMI] 25.0-25.9, adult
CPT/HCPCS: 0241U; 36415; 36600; 70450; 71045; 76705; 76770; 80048; 80053; 80074; 80076; 81001; 82140; 82248; 82465; 82550; 82607; 82746; 82803; 82947; 83540; 83550; 83605; 83690; 83735; 83930; 84132; 84450; 84460; 84478; 84484; 85014; 85018; 85025; 85045; 85384; 85610; 87040; 87077; 87086; 87186; 93005; 93010; 94660; 94760; 94762; 96361; 96374; 97110; 97112; 97116; 97162; 97166; 97530; 97535; 99285-25; A9270; C1751; G0480; J0132; J0696; J0780; J1451; J1650; J1815; J2060; J2405; J3411; J3415; J3480; J7030; J7050; J7060; J7070; J7120